=== PATIENT | male | born 1975 | race Caucasian/White ===

== ENCOUNTER 2025-06-29 09:18 | Emergency (ER) | payer BC, OTHER, SELFPAY ==
[2025-06-29] VITALS (10 sets, daily range): BP systolic 159–171; BP diastolic 105–120; PULSE 70–79; RESP 11–18; TEMP 36.6–36.7; O2SAT 99–100; BMI 27.6
--- NOTE | 2025-06-29 09:30 | EX.ED.DYSGE1 ---
HPI History of Present Illness Chief Complaint: Hyperglycemia Narrative Narrative: 50-year-old male who denies significant past medical history was having cataract surgery performed by Dr. Remy this morning. Patient felt somewhat clammy and lightheaded. They checked his blood sugar and it was elevated at 441. They proceeded to perform the surgery, but told him that he needed to come to the emergency department because he has diabetes. Patient does endorse polyuria and polydipsia recently over the last few weeks if not longer. He does admit to drinking numerous Coca-Cola's at least 8 or 9 over the last day because he states he was nervous about having surgery. He denies any fevers or chills, no cough, no abdominal pain, no nausea or vomiting, no other symptoms. He states otherwise he feels well. He has not seen a primary care provider in years. [facility] Medical History (Updated 06/29/25 @ 14:02 by Grover Espinosa MD) Cataract Home Medications ?Medication ?Instructions ?Recorded ?Last Taken ?Type metformin 500 mg tablet 500 mg PO BID #60 tabs 06/29/25 Unknown Rx Allergy/AdvReac Type Severity Reaction Status Date / Time No Known Allergies Allergy Verified 06/29/25 09:21 Surgical History (Updated 06/29/25 @ 09:50 by Duran Zarco) History of testicular surgery Social History Smoking Status: Never smoker ROS ROS ED ROS Narrative Review of systems is positive for polyuria and polydipsia for weeks. No fevers or chills, no nausea or vomiting, no abdominal pain. No exacerbating or alleviating factors. Recent surgery this morning on cataracts. EXAM Physical Exam Narrative Exam Narrative: Afebrile. Vital signs noted. Nontoxic-appearing. Cardiovascular examination reveals a regular rate and rhythm. Lungs are clear to auscultation bilaterally. Abdomen is soft and nontender with positive bowel sounds. No guarding or rebound. Neurological examination nonfocal, nonlateralizing. No pedal edema. Eye examination deferred because of recent surgery, wearing sunglasses in emergency department. Const Vital Signs: 06/29/25 09:19 06/29/25 09:57 06/29/25 10:19 Temperature 98 F Temperature Source Temporal Pulse Rate 79 79 Respiratory Rate 18 14 Respiratory Effort Normal Non-Labored Respiratory Pattern Normal Blood Pressure 169/120 H 170/105 H Blood Pressure Mean 136 126 Blood Pressure Source Blood Pressure Position Blood Pressure Location Pulse Ox 100 99 Oxygen Delivery Method Room Air Room Air 06/29/25 11:00 06/29/25 11:55 06/29/25 12:00 Temperature 98 F Temperature Source Oral Pulse Rate 79 70 79 Respiratory Rate 14 16 14 Respiratory Effort Respiratory Pattern Blood Pressure 168/120 H 171/109 H 167/115 H Blood Pressure Mean 136 129 132 Blood Pressure Source Monitor Blood Pressure Position Semi-Fowlers Blood Pressure Location Right Arm Pulse Ox 99 100 99 Oxygen Delivery Method Room Air Room Air Room Air 06/29/25 12:10 06/29/25 12:19 06/29/25 13:00 Temperature 98.1 F 98.1 F Temperature Source Oral Oral Pulse Rate 71 71 71 Respiratory Rate 14 14 Respiratory Effort Respiratory Pattern Blood Pressure 167/116 H 167/116 H 159/112 H Blood Pressure Mean 133 133 127 Blood Pressure Source Manual Blood Pressure Position Blood Pressure Location Pulse Ox 100 100 99 Oxygen Delivery Method Room Air Room Air Room Air MDM MDM MDM Narrative Medical decision making narrative: Differential diagnosis includes but not limited to hyperglycemia versus new onset diabetes type 2 versus diabetic ketoacidosis. With his random glucose being over 200, concern is for her new onset diabetes. He will be bolused normal saline, and CBC and CMP checked. On return of his initial CBC, on my review he has pancytopenia with a WBC count of 2.0, hemoglobin low at 4.2, hematocrit 12.0, platelet count low at 64. In discussion with the patient and his mother, she states that he has been fatigued for a long amount of time, he will go to work and come home and go to bed directly. He does admit to fatigue chronically, even last year. I discussed with him the need for type and crossmatch and transfusion of packed red blood cells given his hemoglobin of 4.2. He states that he has not had any dark stool recently. I obtained an EKG and on my independent interpretation it is normal sinus rhythm at 66 bpm without ectopy or acute ST changes. Patient was consented for blood transfusion. In review of his initial/partial CMP, he had numerous abnormalities including calcium 1.6, potassium less than 1.5 and a chloride of 138 with elevated sodium as well. Glucose was normal at 104. While he had initial transfusion for 15 minutes, RN received a call from the lab telling them to hold transfusion and this may have been more of a lab versus blood draw error. Repeat laboratories were drawn, and on review he has a normal hemoglobin, normal white count, and platelet count is normal. Additionally, CMP shows elevated sugar of 335, normal anion gap. Sodium and potassium normal. Patient was given his first dose of metformin here 500 mg orally and prescription written to take twice a day for the next month. I do feel that he needs close follow-up with a primary care provider. I was able to discuss patient with Dr. Pavon who can see him or one of his partners. Patient is to call the office. Return instructions to the emergency department were reviewed. Disposition is discharged home in stable condition. History & Record Review Discussion w/independent historian: Patient and Family (Mother) Lab Data Attestation: I reviewed the patient's lab results. Labs: Laboratory Results - last 24 hr 06/29/25 06/29/25 06/29/25 09:59 09:59 10:07 WBC Cancelled Corrected WBC Cancelled RBC Cancelled Hgb Cancelled Hct Cancelled MCV Cancelled MCH Cancelled MCHC Cancelled RDW Std Deviation Cancelled RDW Coeff of Harry Cancelled Plt Count Cancelled MPV Cancelled Immature Gran % (Auto) Cancelled Neut % (Auto) Cancelled Lymph % (Auto) Cancelled Webb % (Auto) Cancelled Eos % (Auto) Cancelled Baso % (Auto) Cancelled Absolute Neuts (auto) Cancelled Absolute Lymphs (auto) Cancelled Total Counted Cancelled Neutrophils % (Manual) Cancelled Band Neutrophils % Cancelled Lymphocytes % (Manual) Cancelled Monocytes % (Manual) Cancelled Eosinophils % (Manual) Cancelled Basophils % (Manual) Cancelled Metamyelocytes % Cancelled Myelocytes % Cancelled Promyelocytes % Cancelled Blast Cells % Cancelled Plasma Cell % (Manual) Cancelled Other Cells % Cancelled Nucleated RBC % Cancelled Nucleated RBCs/100 WBC Cancelled Differential Comment Cancelled Diff Path Review Cancelled Hypersegmented Neuts Cancelled Atypical Lymphocytes Cancelled Reactive Lymphocytes Cancelled Smudge Cells Cancelled Toxic Granulation Cancelled Toxic Vacuolation Cancelled Dohle Bodies Cancelled David Rods Cancelled Platelet Estimate Cancelled Plt Morphology Comment Cancelled RBC Morphology Cancelled Cancelled Polychromasia Cancelled Hypochromasia Cancelled Basophilic Stippling Cancelled Anisocytosis Cancelled Microcytosis Cancelled Macrocytosis Cancelled Spherocytes Cancelled Sickle Cells Cancelled Target Cells Cancelled Tear Drop Cells Cancelled Ovalocytes Cancelled Stomatocytes Cancelled Caro-Sol[place] Bodies Cancelled [place] Cells Cancelled Bite Cells Cancelled Crenated Cell Cancelled Acanthocytes (Spur) Cancelled Rouleaux Cancelled Schistocytes Cancelled Sodium Cancelled Potassium Cancelled Chloride Cancelled Carbon Dioxide Cancelled Anion Gap Cancelled BUN Cancelled Creatinine Cancelled Estim Creat Clear Calc Cancelled Est GFR (MDRD) Non-Af Cancelled BUN/Creatinine Ratio Cancelled Glucose Cancelled Calcium Cancelled Magnesium Cancelled Total Bilirubin Cancelled AST Cancelled ALT Cancelled Alkaline Phosphatase Cancelled Total Protein Cancelled Albumin Cancelled Globulin Cancelled Albumin/Globulin Ratio Cancelled Blood Type O POSITIVE Antibody Screen NEGATIVE Crossmatch See Detail 06/29/25 12:35 WBC 6.7 Corrected WBC RBC 4.66 Hgb 14.7 Hct 40.2 MCV 86.3 MCH 31.5 MCHC 36.6 H RDW Std Deviation 37.0 RDW Coeff of Harry 11.8 Plt Count 253 MPV 11.3 Immature Gran % (Auto) 0.200 Neut % (Auto) 66.1 Lymph % (Auto) 26.9 Webb % (Auto) 5.7 Eos % (Auto) 0.6 Baso % (Auto) 0.5 Absolute Neuts (auto) 4.4 Absolute Lymphs (auto) 1.79 Total Counted Neutrophils % (Manual) Band Neutrophils % Lymphocytes % (Manual) Monocytes % (Manual) Eosinophils % (Manual) Basophils % (Manual) Metamyelocytes % Myelocytes % Promyelocytes % Blast Cells % Plasma Cell % (Manual) Other Cells % Nucleated RBC % 0 Nucleated RBCs/100 WBC Differential Comment Diff Path Review Hypersegmented Neuts Atypical Lymphocytes Reactive Lymphocytes Smudge Cells Toxic Granulation Toxic Vacuolation Dohle Bodies David Rods Platelet Estimate Plt Morphology Comment RBC Morphology Polychromasia Hypochromasia Basophilic Stippling Anisocytosis Microcytosis Macrocytosis Spherocytes Sickle Cells Target Cells Tear Drop Cells Ovalocytes Stomatocytes Caro-[place] Bodies [place] Cells Bite Cells Crenated Cell Acanthocytes (Spur) Rouleaux Schistocytes Sodium 135 Potassium 4.0 Chloride 102 Carbon Dioxide 21.9 Anion Gap 11 BUN 12 Creatinine 0.67 L Estim Creat Clear Calc 128.00 Est GFR (MDRD) Non-Af 113 BUN/Creatinine Ratio 17.6 Glucose 335 H Calcium 8.2 Magnesium 1.9 Total Bilirubin 1.17 AST 15 ALT 13 Alkaline Phosphatase 84 Total Protein 5.5 L Albumin 3.6 Globulin 1.9 L Albumin/Globulin Ratio 1.9 Blood Type Antibody Screen Crossmatch Discharge Plan Triage Chief Complaint: Hyperglycemia ED Provider: Grover Espinosa Dx/Rx/DC Orders Clinical Impression: Hyperglycemia, New onset type 2 diabetes mellitus Instructions: ED Diabetes- Overview, ED Hyperglycemia New Poss Diabetes Prescriptions: New metformin 500 mg tablet 500 mg PO BID Qty: 60 0RF Primary Care Provider: Care Physician,No Primary Referrals: Selvin Pavon MD [Med Staff - Active Staff, Family Practice] - 1 Week Care Physician,No Primary [Primary Care Provider, Medical] Activity Restrictions/Additional Instructions: Follow-up with primary care in the next week. Metformin as directed, 500 mg twice a day. Return with new or worsening symptoms. Print Language: Norwegian Disposition Disposition: Home, Self Care
[2025-06-29] MEDS: 0.9% Normal Saline (1000mL) 1,000 ML 999 ML IV (09:53)
--- NOTE | 2025-06-29 10:30 | EKG12_ITS ---
Test Reason : ARRYTH Blood Pressure : */* mmHG Vent. Rate : 66 BPM Atrial Rate : 66 BPM P-R Int : 146 ms QRS Dur : 86 ms QT Int : 378 ms P-R-T Axes : -9 45 53 degrees QTcB Int : 396 ms Normal sinus rhythm Normal ECG Confirmed by CALLUM LORENZO, ALIS ([id number]), assignment editor PAGE WOLFF ([id number]) on 06/30/2025 1:25:20 PM Referred By: MONY Confirmed By: ALIS NOLEN MD
[2025-06-29] MEDS: 0.9% Normal Saline (500mL Bag) 500 ML 15 ML IV (10:38)
[2025-06-29 12:41] LABS: Hematocrit 40.2 % (40-54); Hemoglobin 14.7 g/dL (13.0-16.5); Immature Granulocytes Count 0.010 X10^3/uL (0.0-0.0); Mean Corp Hgb Conc 36.6 g/dL (32-36); Mean Corpuscular Volume 86.3 fL (80-94); Mean Platelet Vol. 11.3 fl (6.2-12.0); NRBC Flagged by Analyzer 0 % (0-5); Platelet Count 253 K/mm3 (150-450); RBC Distribution Width CV 11.8 % (11.6-14.6); RBC Distribution Width SD 37.0 fl (35.1-43.9); Red Blood Count 4.66 M/mm3 (4.6-6.2); White Blood Count 6.7 K/mm3 (4.4-11.0)
--- NOTE | 2025-06-29 12:45 | ED.RN ---
blood and potassium ns paused per lab request
--- NOTE | 2025-06-29 13:04 | ED.RN ---
DR SYKES AWARE OF PT BP. PT ASYMPTOMATIC. WILL NOT TREAT AT THIS TIME. WILL CONTINUE TO MONITOR
[2025-06-29 13:09] LABS: Magnesium 1.9 mg/dL (1.5-2.2)
[2025-06-29 13:20] LABS: AST(SGOT) 15 U/L (<=37); Alanine Aminotransfer ALT/SGPT 13 U/L (<=46); Albumin, Serum 3.6 g/dL (3.5-5.0); Alkaline Phosphatase 84 U/L (40-129); Anion Gap 11 (5-15); BUN 12 mg/dL (4-19); BUN/Creat Ratio 17.6 RATIO (10-20); Calcium,Total 8.2 mg/dL (7.6-11.0); Carbon Dioxide 21.9 mmol/L (21.0-32.0); Chloride 102 mmol/L (98-108); Estimated Creatinine Clearance 128.00 ml/min (50-250); Globulin 1.9 g/dL (2.2-4.2); Glucose 335 mg/dL (70-99); Potassium 4.0 mmol/L (3.3-5.1)
--- NOTE | 2025-06-29 14:14 | CM.ED ---
Social Work Reason for visit: No PCP Patient verified that he does not currently have a PCP. [facility] provider list given. No further needs at this time. Supriya Leger, PROPERTY ASSESSMENT MONITOR, SOURCING CONSULTANT
== END 2025-06-29 14:29 | disposition home or self-care (01) ==
PROVIDERS: Emergency Provider Emergency Medicine; Visit Provider Emergency Medicine
DX: E11.65 Type 2 diabetes mellitus with hyperglycemia (principal); Z79.84 Long term (current) use of oral hypoglycemic drugs
CPT/HCPCS: 36415; 80053; 83735; 85025; 86644; 86850; 86900; 86901; 93005; 96360; 96361; 99284; P9016; A4216